=== PATIENT | female | born 1990 | race Caucasian/White ===

== ENCOUNTER 2019-05-13 08:27 | Emergency (ER) | payer MEDICAID, SELFPAY ==
[2019-05-13 08:38] VITALS: BP 131/75; PULSE 81; RESP 16; TEMP 37.1; O2SAT 100
--- NOTE | 2019-05-13 08:58 | ED.URI ---
HPI - URI/Sore Throat General Chief Complaint: Upper Respiratory Infection Stated Complaint: sore throat/ear pain Time Seen by Provider: 05/13/19 08:58 Source: patient History of Present Illness HPI Narrative: Patient presents with bilateral ear pain and sore throat for the past 2 days. No drooling no trouble swallowing has not taken thing [id number] for symptoms. Patient states she is normally healthy individual and has missed work and needs a note for work. MD elicited complaint: sore throat and nasal congestion Pertinent past history: HIV Related Data Home Medications Medication Instructions Recorded Confirmed bupropion HCl 100 mg PO BID 05/13/19 05/13/19 lorazepam 1 mg PO BID PRN 05/13/19 05/13/19 Allergies Allergy/AdvReac Type Severity Reaction Status Date / Time hydrocodone Allergy Unknown Nausea Verified 05/13/19 08:52 Review of Systems Review of Systems: Narrative: CONSTITUTIONAL: Denies chills, or sweats. Reports fever and generalized body aches EYES: Denies visual changes, redness, or discharge. ENT: Denies otalgia. Reports nasal congestion runny nose and sore throat CARDIOVASCULAR: Denies chest pain, palpitations, or edema. RESPIRATORY: Denies dyspnea. Reports occasional cough GASTROINTESTINAL: Denies abdominal pain, nausea, vomiting, or diarrhea. GENITOURINARY: Denies dysuria or hematuria. SKIN: Denies rash or itching. MUSCULOSKELETAL: Denies back pain, joint pain, or myalgia. Reports generalized body aches NEUROLOGIC: Denies headache, numbness, or weakness. PSYCHIATRIC: Denies anxiety or depression. PMFSH Comments At time of signature, agree with nursing past medical, surgical, social and family history. There is no relevant family history pertinent to the presenting complaint Exam Narrative: Exam Narrative: GENERAL: Well-appearing, well-nourished, and in no acute distress. HEAD: Normocephalic, atraumatic. EYES: PERRLA and EOMI. ENT: Nares clear, no rhinorrhea or epistaxis. Mucous membranes moist. Mild pharyngeal erythremia no exudate no drooling no trismus able to open mouth fully mild postnasal drainage bilateral TMs intact with good light reflex NECK: Supple. CHEST: Clear to auscultation. No respiratory distress. HEART: Regular rate and rhythm. No murmur heard. Normal peripheral pulses. ABDOMEN: Soft, nontender, nondistended, normal active bowel sounds. EXTREMITIES: Normal range of motion. No edema. SKIN: Warm, dry, no rash. NEURO: No focal deficits. Alert and oriented x3. May Coma Scale Eye Opening: Spontaneous 4 May Coma Scale Motor: Obeys Commands 6 May Coma Scale Verbal: Oriented 5 May Coma Scale Total 15 Course Vital Signs Vital signs: Vital Signs Temperature 37.1 C 05/13/19 08:38 Pulse Rate 81 05/13/19 08:38 Respiratory Rate 16 05/13/19 08:38 Blood Pressure 131/75 05/13/19 08:38 Pulse Oximetry 100 05/13/19 08:38 Temperature 37.1 C 05/13/19 08:38 Pulse Rate 81 05/13/19 08:38 Respiratory Rate 16 05/13/19 08:38 Blood Pressure 131/75 05/13/19 08:38 Pulse Oximetry 100 05/13/19 08:38 Addressed elevated BP today. Today's blood pressure higher than recommended range. Discussed importance of follow -up with PCP and possible longterm effects/cardiovascular events related to HTN. Currently patient denies headache, dizziness, vision changes, CP or shortness of breath. MDM - URI/Sore Throat Differential Diagnosis Differential diagnosis: Likely upper respiratory infection and pharyngitis Lab Data Labs: Strep Screen Positive Group A Strep *(Reference Range: Negative)* Critical Care Time Critical Care Time Critical Care Time: No Discharge Plan Discharge Clinical Impression: Pharyngitis Qualifiers: Pharyngitis/tonsillitis etiology: streptococcus Qualified Code(s): J02.0 - Streptococcal pharyngitis Patient Disposition: Home, Self-Care Condition: Stable Instructions: Antibiotic Form
== END 2019-05-13 09:05 | disposition home or self-care (01) ==
PROVIDERS: Emergency Provider Nurse Practitioner Family
DX: J02.0 Streptococcal pharyngitis (principal); F41.9 Anxiety disorder, unspecified
CPT/HCPCS: 87880; 99213; G0463

== ENCOUNTER 2020-02-12 19:10 | Emergency (ER) | payer OTHER, SELFPAY ==
[2020-02-12 19:18] VITALS: BP 139/70; PULSE 102; RESP 16; TEMP 36.8; O2SAT 100
--- NOTE | 2020-02-12 19:18 | ED.PEDHENT ---
HPI - Pediatric HENT General Chief complaint: Ear Stated complaint: Ear and throat pain Time Seen by Provider: 02/12/20 19:23 Source: patient and RN notes reviewed Mode of arrival: ambulatory Limitations: no limitations History of Present Illness HPI Narrative: 29 year old female presents to [facility] with complaints of right ear pain which started today, acute frontal headache pain for 2 days with episode of nausea and emesis this morning with no history of previous migraines. Patient also states that she has pain to the lateral aspect of her throat with glands feeling swollen and tender.Patient denies any acute cough or feelings of dyspnea, respirations even and nonlabored, denies any problems with taste or smell, denies any fevers, chills or sweats. MD complaint: sore throat, ear pain and other (acute headache with nausea and vomiting) Onset (ago): day(s) (2) Fever: No Pain location: right ear Pain Consistency: constant Associated symptoms: neck pain (right side) Treatments prior to arrival: ibuprofen Related Data Immunizations UTD: Yes Home Medications Medication Instructions Recorded Confirmed bupropion HCl 100 mg PO BID 05/13/19 02/12/20 lorazepam 1 mg PO BID PRN 05/13/19 02/12/20 norelgestromin-ethin.estradiol 1 patch TRANSDERMAL WEEKLY 02/12/20 02/12/20 [[place]] Allergies Allergy/AdvReac Type Severity Reaction Status Date / Time hydrocodone Allergy Unknown Nausea Verified 02/12/20 19:15 Pediatric Review of Systems : Review of Systems: CONSTITUTIONAL: Denies fever, chills, or sweats. EYES: Denies visual changes, redness, or discharge. ENT: Minimal clear rhinorrhea, congestion, lateral neck pain and swelling with no inner sore throat, right otalgia. CARDIOVASCULAR: Denies chest pain, palpitations, or edema. RESPIRATORY: Denies cough or dyspnea. GASTROINTESTINAL: Denies abdominal pain,episode of nausea, vomiting X1, no diarrhea. GENITOURINARY: Denies dysuria or hematuria. SKIN: Denies rash or itching. MUSCULOSKELETAL: Denies back pain, joint pain, or myalgia. NEUROLOGIC: Positive headache,no numbness, or weakness, episode of dizziness. PSYCHIATRIC: Positive history of anxiety or depression. All systems ED: reviewed and negative except as stated PMF Past Medical History Medical History (Updated 02/14/20 @ 08:18 by Jennie Avendano NP) Anxiety Left hand fracture Surgical History Surgical History (Updated 02/14/20 @ 08:24 by Jennie Avendano NP) H/O dilation and curettage Hx of lymph node biopsy age 13 benign Social History Social History (Updated 02/12/20 @ 19:46 by Jennie Avendano NP) Smoking status: Current every day smoker Tobacco type: cigarettes Alcohol intake: current Substance use: unknown Living arrangements: with family Gender identity (if verbalized by the patient): Female Comments At time of signature, agree with nursing past medical, surgical, social and family history. There is no relevant family history pertinent to the presenting complaint Pediatric Exam Narrative: Physical exam: GENERAL: Well-appearing, well-nourished, and in no acute distress. HEAD: Normocephalic, atraumatic. EYES: PERRLA and EOMI. ENT: Nares clear, clear rhinorrhea no epistaxis. Mucous membranes moist.Right TM red and bulging, left TM normal no drainage in ear canals, Throat has mild redness with post nasal drainage noted, NECK: Supple.lymphadenopathy right side. CHEST: Clear to auscultation. No respiratory distress.SAO2 100% on room air. HEART: Regular rate and rhythm. No murmur heard. Normal peripheral pulses. ABDOMEN: Soft, nontender, nondistended, normal active bowel sounds, nausea associated with headache. EXTREMITIES: Normal range of motion. No edema. SKIN: Warm, dry, no rash. NEURO: No focal deficits. Alert and oriented x3. Course Vital Signs Vital signs: Vital Signs Temperature 36.8 C 02/12/20 19:18 Pulse Rate 102 H 02/12/20 19:18 Respiratory Rate 16 02/12/20 19
== END 2020-02-12 19:37 | disposition home or self-care (01) ==
PROVIDERS: Emergency Provider Registered Nurse; PCP Internal Medicine
DX: H65.01 Acute serous otitis media, right ear (principal); R51.9 Headache, unspecified; F17.210 Nicotine dependence, cigarettes, uncomplicated; F41.9 Anxiety disorder, unspecified
CPT/HCPCS: 99213; G0463

== ENCOUNTER 2021-05-29 11:08 | Emergency (ER) | payer OTHER, SELFPAY ==
[2021-05-29 11:12] VITALS: BP 117/65; PULSE 98; RESP 14; TEMP 37.2; O2SAT 98
[2021-05-29 11:25] VITALS: BP 117/65; PULSE 98; RESP 14; TEMP 37.2; O2SAT 98
--- NOTE | 2021-05-29 12:48 | ED.URI ---
HPI - URI/Sore Throat General Chief Complaint: Upper Respiratory Infection Stated Complaint: throat pain cough migraine Time Seen by Provider: 05/29/21 12:19 Source: patient and RN notes reviewed Mode of arrival: ambulatory Limitations: no limitations History of Present Illness HPI Narrative: Patient presents today with a 3-day history of sore throat, postnasal drip, body aches, headache, cough. States symptoms are not improving. She is 21 weeks . She has done 3 home COVID-19 tests so far that have all been negative. She currently rates her pain 7/10 and has been taking Tylenol, Robitussin, Benadryl without relief. MD elicited complaint: cough and sore throat Related Data Home Medications Medication Instructions Recorded Confirmed buspirone 10 mg PO DAILY 05/29/21 05/29/21 vit no.[id number] 1 tablet PO DAILY 05/29/21 05/29/21 [Alive ] Allergies Allergy/AdvReac Type Severity Reaction Status Date / Time hydrocodone Allergy Unknown Nausea Verified 05/29/21 11:22 Review of Systems Review of Systems: CONSTITUTIONAL: Denies , fever, chills, or sweats.+ Body aches EYES: Denies visual changes, redness, or discharge. ENT: Denies rhinorrhea, congestion, or otalgia.+ Sore throat, postnasal drip CARDIOVASCULAR: Denies chest pain, palpitations, or edema. RESPIRATORY: Denies dyspnea.+ Cough GASTROINTESTINAL: Denies abdominal pain, nausea, vomiting, or diarrhea. GENITOURINARY: Denies dysuria or hematuria. SKIN: Denies rash, itching, or wounds. MUSCULOSKELETAL: Denies back pain, joint pain, or myalgia. NEUROLOGIC: Denies numbness, tingling, or weakness.+ Headache PSYCH: Denies depression or anxiety. [facility] Past Medical History Medical History Anxiety Left hand fracture Surgical History Surgical History H/O dilation and curettage Hx of lymph node biopsy age 13 benign Social History Social History Smoking status: Current every day smoker Tobacco type: cigarettes Alcohol intake: current Substance use: unknown Gender identity (if verbalized by the patient): Female Comments At time of signature, I have reviewed and agree with nursing past medical, surgical, social and family history unless otherwise noted. Please see nursing chart for further information. There is no relevant family history pertinent to the presenting complaint Exam Narrative: GENERAL: Mildly ill-appearing, well-nourished, and in no acute distress. HEAD: Normocephalic, atraumatic. EYES: EOMI. No redness or drainage. Conjunctivae normal. ENT: Mucous membranes pink and moist. Nares clear. No rhinorrhea. TMs normal bilaterally. Throat normal. Uvula midline. NECK: Normal AROM. Supple. No lymphadenopathy. CHEST: No respiratory distress. Clear to auscultation. HEART: Regular rate and rhythm. No murmur appreciated. Normal peripheral pulses. EXTREMITIES: Normal range of motion. No edema. SKIN: Warm, dry, no rash. Capillary refill normal. Normal skin turgor. NEURO: No focal deficits. Alert and oriented x3. Gait steady. PSYCH: Normal affect. No signs of depression or anxiety. Course Course Level of Care: Express Care Visit Vital Signs Vital signs: Vital Signs Temperature 98.9 F 05/29/21 11:12 Pulse Rate 98 05/29/21 11:12 Respiratory Rate 14 05/29/21 11:12 Blood Pressure 117/65 05/29/21 11:12 Pulse Oximetry 98 05/29/21 11:12 Temperature 98.9 F 05/29/21 11:25 Pulse Rate 98 05/29/21 11:25 Respiratory Rate 14 05/29/21 11:25 Blood Pressure 117/65 05/29/21 11:25 Pulse Oximetry 98 05/29/21 11:25 Reviewed MDM - URI/Sore Throat Differential Diagnosis Differential diagnosis: Likely upper respiratory infection, sinusitis, viral infection, bronchitis, influenza and other (Strep throat) Lab Data
== END 2021-05-29 12:59 | disposition home or self-care (01) ==
PROVIDERS: Emergency Provider Nurse Practitioner
DX: J06.9 Acute upper respiratory infection, unspecified (principal); F17.210 Nicotine dependence, cigarettes, uncomplicated; F41.9 Anxiety disorder, unspecified
CPT/HCPCS: 87081; 87804; 87880; 99213; G0463

== ENCOUNTER 2021-08-03 12:09 | Outpatient (CLI) | payer OTHER, SELFPAY ==
[2021-08-03 12:30] VITALS: BP 119/69; PULSE 81
[2021-08-03 12:50] VITALS: BP 119/69; PULSE 81
== END 2021-08-03 12:57 | disposition home or self-care (01) ==
LOC: ANHOBOP 12:15 → ANHOBPP 12:16
PROVIDERS: Visit Provider Obstetrics & Gynecology
DX: O42.90 Premature rupture of membranes, unspecified as to length of time between rupture and onset of labor, unspecified weeks of gestation (principal); Z3A.00 Weeks of gestation of pregnancy not specified
CPT/HCPCS: 59025; 99199

== ENCOUNTER 2021-10-02 05:02 | Inpatient (IN) | payer OTHER, SELFPAY ==
[2021-10-02] VITALS (100 sets, daily range): BP systolic 74–156; BP diastolic 34–89; PULSE 60–181; RESP 16; TEMP 36.1–36.7; O2SAT 81–100; BMI 31.8
--- NOTE | 2021-10-02 05:26 | LDADM ---
This patient, Marina Andrade, was admitted to Labor/Delivery/Recovery 104 on 10/02/21 at 05:02. Plans for labor, pain management and were discussed with patient. Patient/family oriented to hospital policies and general routines including ID bracelet, bed and alarms, visiting hours, pain management, procedures, bathroom and other care routines, personal items, smoking policy, room service/diet and guest tray routines, security routines, and visiting hours. Patient/Family are encouraged to report perceived risks to care and to ask questions if they do not understand what they are told or what they should do. See OBIX for further documentation.
[2021-10-02 05:41] LABS: Basophils Percent Auto 0.2 % (0.2-1.2); Eosinophils Absolute Auto 0.1 K/mm3 (0-0.3); Eosinophils Percent Auto 0.8 % (0-4.4); Hematocrit 31.9 % (37.0-47.0); Hemoglobin 10.3 g/dL (12.0-15.0); Immature Granulocyte Percent A 1.1 % (0-0.5); Lymphocytes Absolute Auto 2.94 K/mm3 (0.9-3.2); Lymphocytes Percent Auto 32.7 % (18.3-44.2); Mean Corpuscular HGB Conc 32.3 g/dl (32-36); Mean Corpuscular Hemoglobin 30.3 pg (26-34); Mean Corpuscular Volume 93.8 fl (80-100); Mean Platelet Volume 10.5 fl (7.4-10.4); Monocytes Absolute Auto 0.6 K/mm3 (0.1-0.6); Monocytes Percent Auto 6.3 % (2.6-8.5); Neutrophils Absolute Auto 5.3 K/mm3 (1.3-6.7); Neutrophils Percent Auto 58.9 % (45.5-73.1); Platelet Count Result 210 k/mm3 (150-375)
[2021-10-02] MEDS: LACTATED RINGERS 1,000 ML 125 ML IV CONT ×2 (06:00→14:52)
[2021-10-02] MEDS: OXYTOCIN 30 UNITS/NS 500 ML 30 UNITS/500 ML BAG IV CONT (06:07)
[2021-10-02 06:38] LABS: HIV 1/2 Ab P24 Ag Result Negative (Negative)
--- NOTE | 2021-10-02 07:31 | PM.IMHP ---
H&P: HPI History of Present Illness Date/Time: 10/02/21 07:31 Chief Complaint: Term for induction of labor Narrative: 30-year-old 3 para 2 whose last menstrual period was 1021, EDC is 10/09/2021, confirmed by a 7 week ultrasound presents at 39 weeks gestation for induction labor. She is negative for group B strep. Risks and benefits reviewed. She does desire permanent sterilization. PMFSH Past Medical History Medical History Anxiety Left hand fracture Surgical History Surgical History H/O dilation and curettage Hx of lymph node biopsy age 13 benign Family History Family History Other No significant past medical history Social History Social History Smoking status: Former smoker Tobacco type: cigarettes Alcohol intake: current Substance use: never Gender identity (if verbalized by the patient): Female Spiritual care concerns: No Meds Home Medications and Allergies Home Medications Medication Instructions Recorded Confirmed Type buspirone 10 mg tablet 10 mg PO DAILY 05/29/21 10/02/21 History vitamin no.138-folic acid 1 tablet PO DAILY 05/29/21 10/02/21 History 400 mcg-dha 25 mg chewable tablet Allergies Allergy/AdvReac Type Severity Reaction Status Date / Time hydrocodone AdvReac Unknown Nausea Verified 10/02/21 05:42 Vital Signs Vital Signs - 24 hr 10/02/21 05:38 10/02/21 05:33 10/02/21 05:30 Temperature 98 F Pulse Rate 94 Respiratory Rate 16 Blood Pressure 120/67 Oxygen Delivery Room Air 10/02/21 06:00 10/02/21 06:30 10/02/21 06:45 Temperature Pulse Rate 80 72 69 Respiratory Rate Blood Pressure 139/87 123/66 135/70 Oxygen Delivery 10/02/21 07:00 10/02/21 07:15 10/02/21 07:30 Temperature Pulse Rate 66 61 69 Respiratory Rate Blood Pressure 126/71 127/69 128/70 Oxygen Delivery Exam GI: Inspection: normal to inspection Percussion: Yes normal to percussion Auscultation: normal bowel sounds : External Female Exam: normal external appearance Speculum Exam - Vagina: normal appearance of the vagina Speculum Exam - Cervix: normal appearance of the cervix ( Cervix /2. Attempted a ROM without fluid. FHTs reassuring) H&P: Results Labs Labs: Short CBC 10/02/21 Range/Units 05:29 WBC 9.0 (4.5-10.0) K/mm3 Hgb 10.3 L (12.0-15.0) g/dL Hct 31.9 L (37.0-47.0) % Plt Count 210 (150-375) k/mm3 Assessment and Plan Assessment and plan (1) Term : Code(s): Z34.90 - Encounter for supervision of normal , unspecified, unspecified trimester Status: Acute Plan medical induction of labor. Spontaneous vaginal delivery is expected. She has an epidural candidate
--- NOTE | 2021-10-02 11:33 | PM.OBPNLAB ---
Pain Control Date/time seen: 10/02/21 11:33 Pain control: tolerating well Pelvic Exam Dilation (cm): 2 Effacement (%): 80 station: -2 Amniotic membrane status: Ruptured Contractions Monitor mode: External Contraction frequency: 3
[2021-10-02 12:01] LABS: Rapid Plasma Reagin Non-Reactive (NonReactive)
--- NOTE | 2021-10-02 12:51 | WPDANESEPP ---
Anes - Eval Pre Procedure Procedure: Labor epidural Date/Time: 10/02/21 12:51 Surgeon: Diogo Worrell Preop Diagnosis: Pain during labor Pre Op Diagnosis: IOL Patient Data Age: 30 Gender: F Height: 1.75 m Weight: 98 kg Last Vital Signs Temp 36.2 C L 10/02/21 12:41 Pulse 62 10/02/21 12:45 Resp 16 10/02/21 05:30 BP 110/80 10/02/21 12:45 O2 Del Method Room Air 10/02/21 05:38 Allergies Allergy/AdvReac Type Severity Reaction Status Date / Time hydrocodone AdvReac Unknown Nausea Verified 10/02/21 05:42 Home Medications Medication Instructions Recorded Confirmed Type buspirone 10 mg tablet 10 mg PO DAILY 05/29/21 10/02/21 History vitamin no.138-folic acid 1 tablet PO DAILY 05/29/21 10/02/21 History 400 mcg-dha 25 mg chewable tablet Laboratory Tests 10/02/21 10/02/21 10/02/21 05:29 05:29 05:29 WBC 9.0 K/mm3 K/mm3 (4.5-10.0) RBC 3.40 M/mm3 L M/mm3 (4.2-5.4) Hgb 10.3 g/dL L g/dL (12.0-15.0) Hct 31.9 % L % (37.0-47.0) MCV 93.8 fl fl (80-100) MCH 30.3 pg pg (26-34) MCHC 32.3 g/dl g/dl (32-36) RDW 13.0 % % (11.5-14.5) Plt Count 210 k/mm3 k/mm3 (150-375) MPV 10.5 fl H fl (7.4-10.4) Immature Gran % (Auto) 1.1 % H % (0-0.5) Neut % (Auto) 58.9 % % (45.5-73.1) Lymph % (Auto) 32.7 % % (18.3-44.2) [place] % (Auto) 6.3 % % (2.6-8.5) Eos % (Auto) 0.8 % % (0-4.4) Baso % (Auto) 0.2 % % (0.2-1.2) Lymph # (Auto) 2.94 K/mm3 K/mm3 (0.9-3.2) [place] # (Auto) 0.6 K/mm3 K/mm3 (0.1-0.6) Eos # (Auto) 0.1 K/mm3 K/mm3 (0-0.3) Baso # (Auto) 0.0 K/mm3 K/mm3 (0.0-0.1) Abs Immat Gran (auto) 0.10 K/mm3 H K/mm3 (0.00-0.031) Absolute Neuts (auto) 5.3 K/mm3 K/mm3 (1.3-6.7) Absolute Nucleated RBC 0.0 K/mm3 K/mm3 (0.0-0.012) Nucleated RBC % 0.0 % % (0.0-0.2) RPR Non-reactive (NonReactive) HIV 1&2 Ab/P24 Ag 4thGn Negative (Negative) Blood Type Antibody Screen 10/02/21 05:29 WBC RBC Hgb Hct MCV MCH MCHC RDW Plt Count MPV Immature Gran % (Auto) Neut % (Auto) Lymph % (Auto) [place] % (Auto) Eos % (Auto) Baso % (Auto) Lymph # (Auto) [place] # (Auto) Eos # (Auto) Baso # (Auto) Abs Immat Gran (auto) Absolute Neuts (auto) Absolute Nucleated RBC Nucleated RBC % RPR HIV 1&2 Ab/P24 Ag 4thGn Blood Type A Positive Antibody Screen Negative Patient hx anesthesia problems: none Family hx anesthesia problems: none Results Review: All pre-operative results and documents have been reviewed as part of the pre-operative evaluation. [facility] Past Medical History Medical History Anxiety Left hand fracture Surgical History Surgical History H/O dilation and curettage Hx of lymph node biopsy age 13 benign Family History Family History Other No significant past medical history Social History Social History Smoking status: Former smoker Tobacco type: cigarettes Alcohol intake: current Substance use: never Gender identity (if verbalized by the patient): Female Spiritual care concerns: No Exam Day of Procedure 10/02/21 12:51 Patient weight: overweight Neurological: alert and oriented
[2021-10-02] MEDS: fentaNYL CITRATE INJ (*CRX) 100 MCG/2 ML VIAL 50 MCG IV PUSH ×2 (13:42→14:52)
[2021-10-02] MEDS: SODIUM CHLORIDE 0.9% IV 300 ML 600 ML I-UTERINE (15:44)
--- NOTE | 2021-10-02 17:19 | PM.OBPNLAB ---
Pain Control Date/time seen: 10/02/21 17:19 Pain control: tolerating well and epidural Pelvic Exam Dilation (cm): 6 Effacement (%): 80 station: -2 Amniotic membrane status: Ruptured Contractions Monitor mode: External Contraction frequency: 3
--- NOTE | 2021-10-02 18:20 | P.PCNOB_ITS ---
OB - Delivery Note Procedure Delivery date: 10/02/21 Procedure: mil Induction method: AROM Delivery augmentation: Pitocin Delivery monitor: External FHT and Internal Uterine Route of delivery: Episiotomy description: None Laceration Description: None Quantitative Blood Loss (ml): 259 Anesthesia type: Epidural Disposition: Floor [place] Baby Date of : 10/02/21 Time of : 18:07 Weeks of gestation at delivery: 39 gender: Female Weight (ounces): 7 presentation: vertex position: Right Occiput Anterior Placenta delivery description: Spontaneous Cord Vessel Description: 3 Vessels, Nuchal Cord and Loose score one minute: 8 score five minutes: 9
[2021-10-02] MEDS: OXYTOCIN 30 UNITS/NS 500 ML 30 UNITS/500 ML BAG 125 UNITS IV CONT (18:41)
[2021-10-02] MEDS: WITCH HAZEL 40 PADS 1 PAD TOPICAL (20:04)
[2021-10-02] MEDS: BENZOCAINE 20% AER SPR (*SP) 56 GM CAN 1 SPRAY TOPICAL (20:04)
[2021-10-02] MEDS: IBUPROFEN 600 MG TABLET PO (20:05)
--- NOTE | 2021-10-02 20:48 | OBPPTRN ---
Patient transferred to post room 286 via wheelchair. Support person present. Oriented to unit, room, information board, rooming in, admission packet and security measures. Patient verbalizes understanding.
[2021-10-02] MEDS: ACETAMINOPHEN 325 MG TABLET 650 MG PO (21:34)
[2021-10-03] VITALS (8 sets, daily range): BP systolic 100–118; BP diastolic 55–74; PULSE 62–81; RESP 14–20; TEMP 36.3–37; O2SAT 98–100
[2021-10-03] MEDS: ACETAMINOPHEN 325 MG TABLET 650 MG PO ×2 (04:19→12:53)
[2021-10-03 05:13] LABS: Hematocrit 29.1 % (37.0-47.0); Hemoglobin 9.7 g/dL (12.0-15.0)
--- NOTE | 2021-10-03 06:52 | PM.OBPNVD ---
OB - PN: Subj Subjective Date/time seen: 10/03/21 06:52 Patient comments: no complaints and pain well controlled baby status: doing well OB - PN: Obj Data Labs CBC & Chem 7: 10/03/21 04:15 Labs: Laboratory Results - last 24 hr 10/02/21 10/03/21 05:29 04:15 Hgb 9.7 L Hct 29.1 L RPR Non-reactive OB - PN A/P Assessment and Plan (1) Term : Code(s): Z34.90 - Encounter for supervision of normal , unspecified, unspecified trimester Status: Acute Plan day: 1 Plan: routine care Time Spent With Patient Time: Total time spent is greater than 50% in coordination of care (as documented) at patient's floor/unit and/or counseling patient: Time with patient: less than 15 minutes
--- NOTE | 2021-10-03 07:21 | WPDANLDPN2 ---
Anes-Prog Note L&D Date/Time: 10/03/21 07:21 Comfortable throughout: labor Neuraxial method: epidural Epidural/Spinal procedure site: clean & non-tender Neuro status: Neuro function grossly intact. Cardiovascular status: normal Respiratory status: normal Airway patency: baseline Mental status: baseline Vital Signs: Last Vital Signs Temp 36.7 C 10/03/21 04:20 Pulse 81 10/03/21 04:20 Resp 16 10/03/21 04:20 BP 107/55 L 10/03/21 04:20 Pulse Ox 100 10/03/21 04:20 O2 Del Method Room Air 10/02/21 05:38 Pain score (VAS): 1 I/O: Intake & Output 10/02/21 10/02/21 10/03/21 15:59 23:59 07:59 Intake Total 1000 Output Total 1129 Balance 1000 -1129 Patient feedback: Patient satisfied with anesthetic care.
[2021-10-03] MEDS: MULTIVIT/MIN/PREN/FOL AC/IRON TABLET 1 TAB PO (07:45)
[2021-10-03] MEDS: IBUPROFEN 600 MG TABLET PO ×2 (07:45→16:40)
[2021-10-03] MEDS: DOCUSATE SODIUM 100 MG CAPSULE PO ×2 (07:45→16:40)
[2021-10-03] MEDS: POLYSACCHARIDE IRON COMPLEX 150 MG CAPSULE PO ×2 (07:45→16:40)
--- NOTE | 2021-10-03 14:11 | PC.NURSE ---
0908 Introductions were made, then consulted with patient to assess needs related to . Mother led the conversation with her?plans to feed?her and the?experience so far. Resources provided for inpatient and outpatient services using a resource guide and mom/baby guide. Mother welcomed a assessment. Mother is able to optimally latch infant for effective with good suck/swallow ratios. Mother voiced understanding of information and will call if there is a request for assistance. Reported to primary RN.
[2021-10-04] MEDS: TETANUS,DIPHTHERIA,AC PERTUSSIS ADULT (0.5 ML) BOOSTRIX IM (04:55)
--- NOTE | 2021-10-04 07:22 | P.DS_ITS ---
DS: Admitting Diagnosis Discharge Date 10/04/2021 Admitting Diagnosis Term DS: Discharge Diagnosis Discharge Diagnosis (1) Term : Code(s): Z34.90 - Encounter for supervision of normal , unspecified, unspecified trimester Status: Acute DS: Summary Hospital Course Reason for hospitalization: Induction of labor at term Hospital Course: Patient underwent successful spinal spontaneous vaginal delivery after induction at term. Her hospital course was unremarkable. She remained afebrile. She was up, voiding without difficulty, ambulating, breast-feeding generally complaints. Time Spent with Patient Time attestation: Total time spent providing and/or coordinating discharge services: Discharge Plan Discharge Attending physician on discharge: Charbel Marlow Discharging Clinician: Charbel Marlow Patient Disposition: Home, Self-Care Activity: may shower and pelvic rest Diet: heart healthy Wound Care Instructions: follow printed instructions Patient Instructions: Antibiotic Form Stand Alone Forms: General Discharge Information Follow-up/Referrals: Charbel Marlow MD [Physician] - Discharge Medications: Continued buspirone 10 mg Tablet 10 mg PO DAILY Alive 400 mcg- 25 mg Tablet,Chewable 1 tablet PO DAILY Date of admission: 10/02/21 05:02 Primary Care Provider: PHYSICIAN,AUCTION ASSISTANT Admitting Provider: Charbel Marlow Attending physician on admission: Charbel Marlow Condition: Stable
--- NOTE | 2021-10-04 07:25 | PM.OBPNVD ---
OB - PN: Subj Subjective Date/time seen: 10/04/21 07:25 Patient comments: no complaints and pain well controlled baby status: doing well OB - PN: Obj Data Labs CBC & Chem 7: 10/03/21 04:15 OB - PN A/P Assessment and Plan (1) Term : Code(s): Z34.90 - Encounter for supervision of normal , unspecified, unspecified trimester Status: Acute Plan day: 2 Plan: routine care, discharge home and follow up 6 weeks Time Spent With Patient Time: Total time spent is greater than 50% in coordination of care (as documented) at patient's floor/unit and/or counseling patient: Time with patient: less than 15 minutes
[2021-10-04 07:40] VITALS: BP 112/70; PULSE 60; RESP 16; TEMP 36.8; O2SAT 99
[2021-10-04] MEDS: ACETAMINOPHEN 325 MG TABLET 650 MG PO (07:53)
[2021-10-04] MEDS: MULTIVIT/MIN/PREN/FOL AC/IRON TABLET 1 TAB PO (07:53)
[2021-10-04] MEDS: DOCUSATE SODIUM 100 MG CAPSULE PO (07:53)
[2021-10-04] MEDS: POLYSACCHARIDE IRON COMPLEX 150 MG CAPSULE PO (07:53)
== END 2021-10-04 13:26 | disposition home or self-care (01) | DRG 560 ==
LOC: ANHLDR 05:11 → ANHOB2 21:01
PROVIDERS: Admitting Provider Obstetrics & Gynecology; Visit Provider Obstetrics & Gynecology
DX: O69.82X0 Labor and delivery complicated by other cord entanglement, without compression, not applicable or unspecified (principal); Z37.0 Single live birth; Z3A.39 39 weeks gestation of pregnancy
CPT/HCPCS: 36415; 85014; 85018; 85025; 86592; 86703; 86850; 86900; 86901; 90715; A9270; G0432; J2590; J2795; J3010; J7030; J7120

== ENCOUNTER 2021-12-08 00:47 | Day surgery (SDC) | payer OTHER, SELFPAY ==
[2021-11-30 09:56] VITALS: BMI 28.1
--- NOTE | 2021-11-30 10:01 | PC.NURSE ---
Report to the Outpatient Waiting Room, entrance under the green pavilion located off [facility], at time _0830_ on date _[id number]_. OR Time: _1030_. Time changes happen often and if your time is changed the preop area will call you the afternoon before. - You and your visitor will be asked to self-screen and do not enter if you have any COVID symptoms. - Only one visitor and NO children visitors are allowed at this time. - The patient visitor is requested to leave or wait in car when not with patient due to restrictions. - A mask is required within the hospital. Patients may have clear liquids (water, carbonated beverages, clear teas, apple juice) until 3 hours prior to surgery with a maximum of 20 ounces. - No food from midnight until time of surgery Take the following medications with a SIP of water the morning of surgery: ___Lorazepam if needed Medications to discontinue per physician None Date to take last dose Please no make-up, nail montserratian, hairspray, perfume, deodorant, or body powder the day of surgery. No jewelry (including any body piercings) or valuables the day of surgery, leave them at home. Please take a shower or bath the night before, or the morning of, surgery with an antibacterial soap. Wear comfortable, loose fitting clothing. - Jewelry must be removed prior to entering the operating room. Rings and piercings that are not removed may be cut off. - The hospital will not accept responsibility for valuables. - Please leave all valuables, including medications, at home the day of surgery. If you are going home after surgery, a licensed mobile lounge driver must drive you home. - NO public transportation without another adult. - We recommend that an adult stay with you for 24 hours following discharge. - We also recommend that you do not drive, make important decision, drink alcoholic beverages, or take any drugs that were not prescribed by your health care provider for at least 24 hours after your discharge time. Follow any additional instructions given to you from your surgeon. If you or anyone in your household have experienced Covid symptoms in the past week, please notify your surgeon or the nurse liaison at the phone number below for possible testing. Telephone instructions given to _Patient__and asked if any additional questions and then verbalized understanding. Patient advised to call surgeon office or pre surgery nurse liaison [phone] if any additional questions.
--- NOTE | 2021-12-06 05:53 | P.HP_ITS ---
H&P: HPI History of Present Illness Date/Time: 12/06/21 05:53 Chief Complaint: Patient presents for permanent sterilization Narrative: This is 31-year-old multiparous patient who desires and irreversible steriliza tion. She was offered alternatives including but exclusive pills, patches, injections long-acting contraception and has decided upon permanent sterilization. She understands this to be permanent irreversible. The failure rate of 05/999 was given. She was given a handout entitled sterilization for men and women as well as signing the [facility] tubal ligation consent form. She had all questions answered and asked to proceed PMFSH Past Medical History Medical History Anxiety Left hand fracture Surgical History Surgical History H/O dilation and curettage Hx of lymph node biopsy age 13 benign Family History Family History Other No significant past medical history Social History Social History Smoking packs per day: 0.5 Smoking cigarettes per day: 10.0 Years smoked: 6 Smoking pack-years: 3.00 Smoking status: Former smoker Tobacco type: cigarettes Smoking end date: 12/01/19 Alcohol intake: current Substance use: never Gender identity (if verbalized by the patient): Female Spiritual care concerns: No Meds Home Medications and Allergies Home Medications Medication Instructions Recorded Confirmed Type vitamin no.138-folic acid 1 tablet PO DAILY 05/29/21 11/30/21 History 400 mcg-dha 25 mg chewable tablet lorazepam 1 mg tablet 1 mg PO BID PRN Anxiety 11/30/21 11/30/21 History Allergies Allergy/AdvReac Type Severity Reaction Status Date / Time hydrocodone AdvReac Mild Nausea Verified 11/30/21 09:55 Exam Const: General: cooperative, healthy appearing and comfortable Nutritional Appearance: average body habitus Orientation/consciousness: oriented to person, oriented to place and oriented to time Resp: Effort & Inspection: normal respiratory effort Cardio: Rate: regular rate Rhythm: regular rhythm Heart sounds: S1 normal heart sound present and S2 normal heart sound present GI: Inspection: normal to inspection : External Female Exam: normal external appearance Speculum Exam - Vagina: normal appearance of the vagina Speculum Exam - Cervix: normal appearance of the cervix Bimanual exam- vagina & uterus: uterine shape normal Bimanual Exam- Adnexa, other: normal adnexae Assessment and Plan Assessment and plan (1) Sterilization: Code(s): Z30.2 - Encounter for sterilization Status: Acute Plan Laparoscopic bilateral tubal ligation
[2021-12-08] VITALS (11 sets, daily range): BP systolic 108–121; BP diastolic 64–74; PULSE 47–90; RESP 12–16; TEMP 36.2–36.4; O2SAT 96–100
--- NOTE | 2021-12-08 06:45 | WPDHPUPDATE1 ---
History and Physical Update Update Date/Time: 12/08/21 06:45 History and Physical has been reviewed, including an updated exam of the patient. There are NO changes in the patient's condition. Risks, benefits, and alternatives have been discussed and questions answered. Patient agrees to proceed with procedure.
[2021-12-08] MEDS: ACETAMINOPHEN 500 MG TABLET 1000 MG PO (09:07)
--- NOTE | 2021-12-08 09:10 | WPDANESEPPF ---
Anes - Initial Pre Proc Eval Procedure: Operation Date: 12/08/21 09:30 Proposed Procedures p Laparoscopic Bilateral Tubal Sterilization with Fallopian Rings - Charbel Worrell MD Date/Time: 12/08/21 09:10 Surgeon: Charbel Worrell MD Pre Op Diagnosis: desires sterilization Patient Data Age: 31 Gender: F Height: 1.75 m Weight: 86.4 kg Allergies Allergy/AdvReac Type Severity Reaction Status Date / Time hydrocodone AdvReac Mild Nausea Verified 12/08/21 09:04 Home Medications Medication Instructions Recorded Confirmed Type vitamin no.138-folic acid 1 tablet PO DAILY 05/29/21 12/08/21 History 400 mcg-dha 25 mg chewable tablet lorazepam 1 mg tablet 1 mg PO BID PRN Anxiety 11/30/21 12/08/21 History tramadol 50 mg tablet 50 mg PO Q4H PRN pain #20 tabs 12/08/21 Rx Patient hx anesthesia problems: none Family hx anesthesia problems: none Results Review: All pre-operative results and documents have been reviewed as part of the pre-operative evaluation. [facility] Past Medical History Medical History Anxiety Left hand fracture Surgical History Surgical History H/O dilation and curettage Hx of lymph node biopsy age 13 benign Family History Family History Other No significant past medical history Social History Social History Smoking packs per day: 0.5 Smoking cigarettes per day: 10.0 Years smoked: 6 Smoking pack-years: 3.00 Smoking status: Former smoker Tobacco type: cigarettes Smoking end date: 12/01/19 Alcohol intake: current Substance use: never Living arrangements: with family Gender identity (if verbalized by the patient): Female Spiritual care concerns: No Anes - Eval Final PreProcedure Day of Procedure 12/08/21 09:10 Patient weight: overweight Heart: regular rate and rhythm Lungs: decreased breath sounds Airway: Mallampati scale class II Neurological: alert and oriented Last oral intake: >/= 8 hours ASA classification: III Emergent: no Anesthetic plan: proceed Anesthesia type and monitoring: general ETT and standard monitoring Results Review: All pre-operative results and documents have been reviewed as part of the pre-operative evaluation. Informed Consent: The patient's anesthetic plan and its attendant risks and benefits were discussed with the patient/family/POA. Questions were solicited and answers provided to the satisfaction of the patient/family/POA.
[2021-12-08] MEDS: KETOROLAC 15 MG/ML VIAL (*BKC) IV PUSH (09:13)
[2021-12-08] MEDS: LACTATED RINGERS 1,000 ML 30 ML IV CONT ×2 (09:14→11:12)
--- NOTE | 2021-12-08 09:48 | P.OP_ITS ---
Procedure Note - Detailed Date of Procedure 12/08/21 Pre-op Diagnosis desires sterilization Post-op Diagnosis Same Procedure Performed Laparoscopic bilateral tubal ligation via silastic rings Surgeon Charbel Worrell MD Anesthesia General Indications Sh 31-year-old multiparous patient desires permanent sterilization Findings Normal-appearing ovaries tubes and uterus Description of Procedure Patient was prepped draped in the normal sterile fashion placed in dorsal lithotomy position. Under excellent general trach anesthesia weighted speculum placed posterior fornix vagina. Anterior lip of cervix grasped with single- tooth tenaculum and the Ray's cannula inserted the cervix. These were attached and used for uterine manipulation. After active bladder clear urine the weighted speculum was removed and gloves were changed. An infraumbilical incision made the Veress needle passed in the abdomen. Abdomen filled with CO2 gas to 15mm Hg. The 5mm trocar advanced under direct visualization and no injury seen. Patient placed in Trendelenburg and a suprapubic incision made. The 8mm trocar advanced in the abdomen downside visualized no injury seen. The right fallopian tube was grasped with a good knuckle of tube formed with excellent blanching. In like fashion the opposite fallopian tube was grasped with a good knuckle of tube placed at its midportion and photo documentation undertaken. No other abnormalities were seen in photo documentation was undertaken. The lower site removed. The gas removed from the abdomen. The upper site removed. The incisions closed with 4 Monocryl and glu e. The instruments removed from the vagina. Patient was awakened went to recovery in satisfactory condition. All sponge, needle, instrument counts were correct. There were no immediate complications Estimated Blood Loss 5 Drains No Packing No Pathology None sent Complications No immediate complications Condition Stable Disposition PACU
[2021-12-08] MEDS: fentaNYL CITRATE INJ (*CRX) 100 MCG/2 ML VIAL 25 MCG IV PUSH ×4 (10:16→10:29)
[2021-12-08] MEDS: diazePAM INJ (*CRX) 10 MG/2 ML SYRINGE 2.5 MG IV PUSH (10:38)
[2021-12-08] MEDS: HYDROmorphone HCL INJ (*CRX) 1 MG/ML SYR IV PUSH ×2 (10:49→11:10)
[2021-12-08] MEDS: oxyCODONE HCL (*CRX) 5 MG TAB IR PO (12:05)
== END 2021-12-08 12:50 | disposition home or self-care (01) ==
PROVIDERS: Visit Provider Obstetrics & Gynecology
PROC: (CPT 58671; principal; 2021-12-08 09:30)
DX: Z30.2 Encounter for sterilization (principal); Z87.891 Personal history of nicotine dependence
CPT/HCPCS: 58671; A4264; A9270; J0330; J1100; J1170; J1885; J2250; J2405; J2704; J3010; J3360; J7120